=== PATIENT | female | born 1975 ===

== ENCOUNTER → 2017-12-19 | Day surgery (SDC) | payer MEDICAID ==
[2017-12-17 11:06] VITALS: BMI 46.0
[~2017-12-19] MED LIST: DiphenhydrAMINE 50 mg/ml Inj ONE; Iodixanol 320 MG/ML 100 ML BOTTLE IV ONE; Lidocaine 1% 20 MG/2 ML PF AMP ONE; Midazolam 2 MG/2 ML VIAL ONE; Nitroglycerin 50mg in D5W 50 MG/250 ML BOTTLE IV ONE; Verapamil 2 ML ONE
--- NOTE | 2017-12-19 23:18 | CARDCATH ---
PROCEDURE DATE: 12/19/2017 INDICATIONS: Jad Cramer is a 41-year-old female with past medical history significant for hypertension and obesity who underwent a nuclear stress test by Dr. Issa for evaluation of symptoms of atypical chest pain. She was noted to have ST depressions in the lateral leads along with inferolateral wall ischemia and therefore was brought to the research laboratory manager for further evaluation and treatment. PROCEDURES PERFORMED: Left heart catheterization with selective left and right coronary angiograms via left radial approach, left ventriculogram, 6-Thai right femoral arterial access, Mynx closure device for hemostasis. ANGIOGRAPHIC FINDINGS: The left main is a large-sized vessel, bifurcates into LAD and left circumflex coronary artery. Left circumflex is a large-sized vessel. It runs in the AV groove with continuous distally with small sized giving off large obtuse marginal branch continuing distally bifurcating the superior and inferior branches free of any obstructive disease. Left circumflex proximal, mid, distal 0%, obtuse marginal proximal and distal 0%. Left anterior descending is a large-sized vessel, gives off a medium sized diagonal branch vessel free of any obstructive disease. Proximal 0% stenosis, mid 45% non obstructive, distal 0% stenosis. RCA is a large-sized vessel, gives off a few small branches AV ritchie branch, continues distally at the PDA free of any obstructive disease, proximal mid distal RCA 0%, left ventricular ejection fraction 60%, left ventricular end-diastolic pressure was 16 mmHg. IMPRESSION: Nonobstructive coronary artery disease. Normal ejection fraction. RECOMMENDATIONS: Aggressive medical management and risk factor modification. The patient can be discharged home in three hours. Follow up with Dr. Fernandez in one to two weeks' time. Ponce Fernandez MD
[2017-12-20 17:06] VITALS: RESP 16; O2SAT 100
== END | disposition home or self-care (01) ==
LOC: C.CATHLAB 07:38
PROVIDERS: ATTEND Internal Medicine Interventional Cardiology
DX: R94.39 Abnormal result of other cardiovascular function study (principal); I25.10 Atherosclerotic heart disease of native coronary artery without angina pectoris; I10 Essential (primary) hypertension; E66.9 Obesity, unspecified
CPT/HCPCS: 93458; 99152; 99153; C1758; C1769; C1887; J1200; J1644; J2001; J2250; J3010; Q9967